=== PATIENT | female | born 1955 | race Two or more races ===

== ENCOUNTER 2022-12-31 14:49 | Emergency (ER) | payer OTHER ==
[2022-12-31 15:09] VITALS: BP 148/71; PULSE 72; RESP 20; TEMP 98.2; BMI 27.2
[2022-12-31] MEDS ORDERED: MECLIZINE HCL 25 MG TABLET (FP) PO ONE (15:19)
[2022-12-31] MEDS ORDERED: MECLIZINE HCL 25 MG TABLET (FP) ONE (15:24)
[2022-12-31 15:58] LABS: HEMATOCRIT 35.3 % (32.4-45.2); HEMOGLOBIN 11.4 G/dL (10.7-15.3); MCH 27.3 pg (25.7-33.7); MCHC 32.3 g/dl (32.0-36.0); MEAN CELL VOLUME 84.6 fl (80-96); MEAN PLT VOLUME 8.5 fl (7.5-11.1); PLATELET COUNT 289.8 10^3/uL (134-434); RBC 4.17 10^6/uL (3.60-5.2); RDW 15.6 % (11.6-15.6); WHITE BLOOD COUNT 7.9 10^3/uL (4.0-10.8)
[2022-12-31 16:24] LABS: ALBUMIN 4.6 g/dl (3.4-5.0); BILIRUBIN,TOTAL 0.6 mg/dl (0.2-1); BLOOD UREA NITROGEN 9.6 mg/dl (7-18); CREATININE 0.6 mg/dl (0.6-1.3); POTASSIUM 3.8 mmol/L (3.5-5.1); SGOT/AST 14.8 U/L (15-37); SGPT/ALT 13.7 U/L (7-52); TOT PROT 7.2 g/dl (6.4-8.2)
[2022-12-31 19:12] LABS: PLATELET ESTIMATE ADEQUATE
[2022-12-31 19:13] LABS: ANISOCYTOSIS 1+
== END 2022-12-31 18:37 | disposition home or self-care (01) ==
LOC: FER 14:49
DX: R42 Dizziness and giddiness (principal); R11.2 Nausea with vomiting, unspecified; R51.9 Headache, unspecified; I67.1 Cerebral aneurysm, nonruptured; M54.2 Cervicalgia
CPT/HCPCS: 36415; 70496-TC; 70498-TC; 80053; 85025; 99285-25; Q9967

== ENCOUNTER 2023-08-03 17:53 | Emergency (ER) | payer OTHER ==
[2023-08-03 17:59] VITALS: BP 134/57; PULSE 58; RESP 17; TEMP 97.7; BMI 28.3
[2023-08-03] MEDS: SODIUM CHLORIDE 0.9% 1000 ML INFUS.BAG IV ONE (18:41)
[2023-08-03] MEDS ORDERED: ONDANSETRON 4 MG/2 ML VIAL ONE (18:42)
[2023-08-03 18:45] LABS: HEMATOCRIT 38.1 % (32.4-45.2); HEMOGLOBIN 12.4 G/dL (10.7-15.3); MCH 27.2 pg (25.7-33.7); MCHC 32.7 g/dl (32.0-36.0); MEAN CELL VOLUME 83.2 fl (80-96); MEAN PLT VOLUME 8.3 fl (7.5-11.1); PLATELET COUNT 278.2 10^3/uL (134-434); RBC 4.58 10^6/uL (3.60-5.2); RDW 16.7 % (11.6-15.6); WHITE BLOOD COUNT 9.4 10^3/uL (4.0-10.8)
[2023-08-03] MEDS: ONDANSETRON 4 MG/2 ML VIAL IVPUSH ONE (18:48)
[2023-08-03 19:02] LABS: ALBUMIN 4.6 g/dl (3.4-5.0); BILIRUBIN,TOTAL 0.9 mg/dl (0.2-1); CREATININE 0.5 mg/dl (0.6-1.3); POTASSIUM 4.1 mmol/L (3.5-5.1); TOT PROT 7.2 g/dl (6.4-8.2)
== END 2023-08-03 21:43 | disposition home or self-care (01) ==
LOC: FER 17:53
PROC: 3E033GC Introduction of Other Therapeutic Substance into Peripheral Vein, Percutaneous Approach (ICD-10-PCS; principal; 2023-08-03)
PROC: 3E033GC Introduction of Other Therapeutic Substance into Peripheral Vein, Percutaneous Approach (ICD-10-PCS; 2023-08-03)
DX: R42 Dizziness and giddiness (principal); R11.2 Nausea with vomiting, unspecified
CPT/HCPCS: 36415; 70450-TC; 80053; 85027; 96374; 96375; 99284-25